=== PATIENT | male | born 1995 | race African-American/Black ===

== ENCOUNTER 2019-05-06 18:42 | Emergency (ER) | payer MEDICAID ==
[2019-05-06 18:51] VITALS: BP 123/67
== END 2019-05-06 21:10 | disposition left against medical advice (07) ==
LOC: ER 18:42
DX: Z53.21 Procedure and treatment not carried out due to patient leaving prior to being seen by health care provider (principal)

== ENCOUNTER 2019-08-28 20:25 | Emergency (ER) | payer SELFPAY ==
--- NOTE | 2019-08-28 20:44 | ER Document Report ---
ED Medical Screen (RME) - General Chief Complaint: Chest Pain Stated Complaint: CHEST PAIN Time Seen by Provider: 08/28/19 20:42 Primary Care Provider: SELVIN HOOKS MD [Primary Care Provider] - Follow up as needed Notes: Patient presents reporting chest discomfort and feeling like his heart is expanding every time that he uses marijuana. Patient states that he has not used any marijuana tonight. Patient is also concerned about possibly using marijuana that has been laced with fentanyl. Patient denies any symptoms at present although would like to follow-up about the symptoms he has been having recently. I have greeted and performed a rapid initial assessment of this patient. A comprehensive ED assessment and evaluation of the patient, analysis of test results and completion of the medical decision making process will be conducted by additional ED providers. TRAVEL OUTSIDE OF THE [place] IN LAST 30 DAYS: No - Related Data Allergies/Adverse Reactions: amoxicillin Allergy (Verified 07/25/16 07:59) lactose Allergy (Verified 07/25/16 07:59) Past Medical History Pulmonary Medical History: Reports: Hx Asthma Physical Exam - Vital signs Vitals: Temp Pulse Resp BP Pulse Ox 98.7 F 89 22 H 137/69 H 98 08/28/19 20:37 08/28/19 20:37 08/28/19 20:37 08/28/19 20:37 08/28/19 20:37 - Cardiovascular Rhythm: Regular Heart sounds: S1 appreciated, S2 appreciated Murmur: No Course - Vital Signs Vital signs: Temp Pulse Resp BP Pulse Ox 98.7 F 89 22 H 137/69 H 98 08/28/19 20:37 08/28/19 20:37 08/28/19 20:37 08/28/19 20:37 08/28/19 20:37 Doctor's Discharge - Discharge Referrals: SELVIN HOOKS MD [Primary Care Provider] - Follow up as needed
--- NOTE | 2019-08-28 21:17 | ER Document Report ---
ED General - General Chief Complaint: Chest Pain Stated Complaint: CHEST PAIN Time Seen by Provider: 08/28/19 20:42 Primary Care Provider: SELVIN HOOKS MD [ACTIVE STAFF] - Follow up as needed TRAVEL OUTSIDE OF THE [place] IN LAST 30 DAYS: No - HPI Notes: 20-year-old male with a history of anxiety presents with chest pain. Patient states he has had intermittent chest pain for the last 3 to 4 days. Seems to surround when he is smoking marijuana. He is also concerned it is laced with fentanyl. Developed sharp mid chest pain, sometimes radiates to his back. Waxes and wanes. No personal or family history of venous thrombi embolism, no prolonged immobility. No fever, chills or sweats. Moderate intensity, nonexertional. Gradual onset. Nonradiating except as described. No other modifying factors, no other associated symptoms, no other provocative or palliative factors. - Related Data Allergies/Adverse Reactions: amoxicillin Allergy (Verified 07/25/16 07:59) lactose Allergy (Verified 07/25/16 07:59) Past Medical History - Social History Smoking Status: Current Every Day Smoker Drug Abuse: Marijuana Family History: Reviewed & Not Pertinent Patient has suicidal ideation: No Patient has homicidal ideation: No - Medical History Medical History: Negative Notes: Includes anxiety Pulmonary Medical History: Reports: Hx Asthma, Hx Bronchitis Review of Systems - Review of Systems Notes: Review of systems as in the history of present illness, otherwise negative x 10 systems. Physical Exam - Vital signs Vitals: Temp Pulse Resp BP Pulse Ox 98.7 F 89 22 H 137/69 H 98 08/28/19 20:37 08/28/19 20:37 08/28/19 20:37 08/28/19 20:37 08/28/19 20:37 - Notes Notes: General: Well developed . HEENT: Normocephalic, atraumatic. Pupils equal round reactive to light. No JVD. Chest: No trauma. Respiratory: Good air exchange, normal excursion. Cardiac: Regular rhythm. No murmurs or gallops. Abdomen: Soft, benign. Nondistended. Nontender. Back: No asymmetry or gross abnormality. Motor: Grossly normal power and tone. Neurologic: Alert, nonfocal. Cranial nerves II-12 are intact. Sensation intact. Vascular: Well perfused. Normal peripheral pulses. Skin: No petechiae or purpura. Course - Re-evaluation Re-evalutation: 08/28/19 21:16 Is a well-appearing 24-year-old male with chest pain, certainly low risk for any intrathoracic emergency. Suspect this is likely related to his anxiety and smoking, costochondritis or pleurisy. He is PERC negative, would not pursue pulmonary embolism work-up. Doubt pneumothorax will check chest x-ray. Otherwise will take NSAIDs, reassured. Have admonished him not to smoke marijuana or use illicit drugs. 08/28/19 21:55 Additional information indicates that the patient has been doing quite a bit of lifting in a new exercise routine. He is discharged home with instructions to take naproxen, outpatient follow-up. Chest x-ray is unremarkable, EKG unremarkable. - Vital Signs Vital signs: Temp Pulse Resp BP Pulse Ox 98.7 F 89 14 109/67 100 08/28/19 20:37 08/28/19 20:37 08/28/19 21:00 08/28/19 21:00 08/28/19 21:00 - EKG Interpretation by In EKG shows normal: Sinus rhythm, [place], Intervals, QRS Complexes, ST-T Waves Discharge - Discharge Clinical Impression: Chest pain Qualifiers: Chest pain type: other chest pain Qualified Code(s): R07.89 - Other chest pain; R07.8 - Other chest pain Condition: Stable Disposition: HOME, SELF-CARE Instructions: Chest Wall Pain ([facility]), Chest Pain of Unclear Cause ([facility]) Referrals: SELVIN HOOKS MD [ACTIVE STAFF] - Follow up as needed
--- NOTE | 2019-08-28 21:42 | RADIOLOGY REPORT (SQ) ---
XR CHEST 2 VIEWS EXAM DATE: 08/28/2019 8:42 PM CDT HISTORY: Chest pain. COMPARISON: 07/25/2016 FINDINGS: The heart size is within normal limits. No consolidation, pleural effusion, or pneumothorax is seen. No acute bony findings. IMPRESSION: No acute cardiopulmonary disease.
[2019-08-28 22:01] VITALS: BP 123/72
--- NOTE | 2019-08-28 22:55 | EKG REPORT ---
SEVERITY:- NORMAL ECG - SINUS RHYTHM : Confirmed by: Lydia Bowling MD 28-Aug-2019 22:53:52
== END 2019-08-28 22:11 | disposition home or self-care (01) ==
LOC: ER 20:25
DX: R07.89 Other chest pain (principal); F41.9 Anxiety disorder, unspecified; F17.200 Nicotine dependence, unspecified, uncomplicated; Z88.0 Allergy status to penicillin
CPT/HCPCS: 71046; 93005; 93010; 99285

== ENCOUNTER 2019-11-06 12:27 | Emergency (ER) | payer SELFPAY ==
[2019-11-06] MEDS ORDERED: IPRATROPIUM/ALBUTEROL 0.5-2.5 MG/3 ML AMPUL NEB ONE (13:15)
[2019-11-06] MEDS ORDERED: PREDNISONE 20 MG TABLET PO ONE (13:15)
--- NOTE | 2019-11-06 13:16 | ER Document Report ---
HPI - HPI Time Seen by Provider: 11/06/19 13:12 Notes: Otherwise healthy 24-year-old male presents emergency department with cough that has been ongoing for 2 weeks. States he had some dizziness last week. Denies any nausea, vomiting, diarrhea. He does report that the cough is productive wi th clear mucus. Denies any fevers. Past Medical History - General Information source: Patient - Social History Smoking Status: Never Smoker Frequency of alcohol use: None Family History: Reviewed & Not Pertinent Pulmonary Medical History: Reports: Hx Asthma, Hx Bronchitis Vertical Provider Document - CONSTITUTIONAL Notes: PHYSICAL EXAMINATION: GENERAL: Well-appearing, well-nourished and in no acute distress. HEAD: Atraumatic, normocephalic. EYES: Pupils equal round extraocular movements intact, conjunctiva are normal. ENT: Nares patent, bilateral TMs unremarkable. Oropharynx unremarkable, no exudates, swelling or erythema. NECK: Normal range of motion LUNGS: No respiratory distress, coarse rhonchi cleared with cough. Very faint expiratory wheezes noted. Musculoskeletal: Normal range of motion NEUROLOGICAL: Normal speech, normal gait. PSYCH: Normal mood, normal affect. SKIN: Warm, Dry, normal turgor, no rashes or lesions noted. - INFECTION CONTROL TRAVEL OUTSIDE OF THE [place] IN LAST 30 DAYS: No Course - Re-evaluation Re-evalutation: Chest X-Ray 11/06/19 13:15 IMPRESSION: NO ACUTE RADIOGRAPHIC FINDING IN THE CHEST. - Vital Signs Vital signs: Temp Pulse Resp BP Pulse Ox 97.9 F 83 16 125/71 99 11/06/19 12:36 11/06/19 12:36 11/06/19 12:36 11/06/19 12:36 11/06/19 12:36 Discharge - Discharge Clinical Impression: Bronchitis Condition: Stable Disposition: HOME, SELF-CARE Additional Instructions: You were seen for symptoms most consistent with bronchitis. This can take up to 12 weeks to fully resolve. Please follow-up with your primary doctor in the next 2-3 days. Return if you develop worsening cough, vomiting, fever >100.4, pass out, begin coughing blood, or have any other symptoms that are concerning to you. Please use the medications prescribed today as directed. Prescriptions: Benzonatate [Tessalon Perles 100 mg Capsule] 1 - 2 tab PO Q8HP PRN #30 capsule PRN Reason: Prednisone [Deltasone 20 mg Tablet] 3 tab PO DAILY 5 Days #15 tablet Azithromycin [Zithromax 250 mg Tablet] 250 mg PO ASDIR PRN #6 tablet PRN Reason: Forms: Return to Work
[2019-11-06] MEDS ORDERED: BENZONATATE 100 MG CAPSULE PO ONE (13:24)
--- NOTE | 2019-11-06 13:44 | RADIOLOGY REPORT (SQ) ---
EXAM DESCRIPTION: CHEST 2 VIEWS COMPLETED DATE/TIME: 11/06/2019 1:34 pm REASON FOR STUDY: cough x2 weeks COMPARISON: Two-view chest 07/25/2016, 08/28/2019 EXAM PARAMETERS: NUMBER OF VIEWS: two views TECHNIQUE: Digital Frontal and Lateral radiographic views of the chest acquired. RADIATION DOSE: NA LIMITATIONS: none FINDINGS: LUNGS AND PLEURA: No opacities, masses or pneumothorax. No pleural effusion. MEDIASTINUM AND HILAR STRUCTURES: No masses or contour abnormalities. HEART AND VASCULAR STRUCTURES: Heart normal size. No evidence for failure. BONES: No acute findings. HARDWARE: None in the chest. OTHER: No other significant finding. IMPRESSION: NO ACUTE RADIOGRAPHIC FINDING IN THE CHEST. TECHNICAL DOCUMENTATION: JOB ID: [id number] [employer]- All Rights Reserved Reading location - IP/workstation name: [email or web address]
[2019-11-06 14:03] VITALS: BP 109/55
== END 2019-11-06 13:57 | disposition home or self-care (01) ==
LOC: ER 12:27
DX: J40 Bronchitis, not specified as acute or chronic (principal); R42 Dizziness and giddiness
CPT/HCPCS: 94640; 99283; 71046; J7512; J7620

== ENCOUNTER 2020-05-17 14:58 | Emergency (ER) | payer SELFPAY ==
[2020-05-17] MEDS ORDERED: LIDOCAINE 5% (700 MG) TRANSDERMAL ADH..PATCH TP ONE (19:56)
[2020-05-17] MEDS ORDERED: IBUPROFEN 800 MG TABLET PO ONE (19:56)
[2020-05-17] MEDS ORDERED: HYDROCODONE/ACETAMINOPHEN 5-325 MG TABLET PO ONE (19:56)
--- NOTE | 2020-05-17 19:59 | ER Document Report ---
HPI - HPI Patient complains to provider of: Back pain Time Seen by Provider: 05/17/20 19:21 Onset: This morning Onset/Duration: Persistent Quality of pain: Achy Pain Level: 4 Context: Patient presents complaining of right upper back pain that started today. Patient states that he sleeps on a couch that is too short. Patient states that whenever he moves his right upper extremity it worsens the pain. Patient denies any cough. Patient denies any fever or trauma. Associated Symptoms: denies: Chest pain, Nonproductive cough, Productive cough, Fever, Headache Exacerbated by: Movement Relieved by: Denies Similar symptoms previously: No Recently seen / treated by doctor: No - ROS ROS below otherwise negative: Yes Systems Reviewed and Negative: Yes All other systems reviewed and negative - CONSTITUTIONAL Constitutional: DENIES: Fever, Chills - NEURO Neurology: DENIES: Headache - CARDIOVASCULAR Cardiovascular: DENIES: Chest pain - RESPIRATORY Respiratory: DENIES: Trouble Breathing, Coughing - GASTROINTESTINAL Gastrointestinal: DENIES: Nausea, Patient vomiting - MUSCULOSKELETAL Musculoskeletal: REPORTS: Back Pain. DENIES: Extremity pain, Neck Pain - DERM Skin Color: Normal Skin Problems: None Past Medical History - General Information source: Patient - Social History Smoking Status: Current Every Day Smoker Frequency of alcohol use: None Drug Abuse: Marijuana Occupation: Online entertainment Lives with: Family Family History: Reviewed & Not Pertinent Patient has homicidal ideation: No Pulmonary Medical History: Reports: Hx Asthma, Hx Bronchitis Past Surgical History: Reports: Hx Oral Surgery Vertical Provider Document - CONSTITUTIONAL Agree With Documented VS: Yes Exam Limitations: No Limitations General Appearance: WD/WN, No Apparent Distress - INFECTION CONTROL TRAVEL OUTSIDE OF THE [place] IN LAST 30 DAYS: No - HEENT HEENT: Atraumatic, Normocephalic - NECK Neck: Normal Inspection, Supple. negative: Lymphadenopathy-Left, Lymphadenopathy-Right - RESPIRATORY Respiratory: Breath Sounds Normal, No Respiratory Distress - CARDIOVASCULAR Cardiovascular: Regular Rate, Regular Rhythm Pulses: Normal: Radial - BACK Back: Abnormal Inspection - Right thoracic back tenderness, right trapezius muscle tenderness - MUSCULOSKELETAL/EXTREMETIES Musculoskeletal/Extremeties: ANAMARIA WAGNER - NEURO Level of Consciousness: Awake, Alert, Appropriate Motor/Sensory: No Motor Deficit - DERM Integumentary: Warm, Dry, No Rash Course - Re-evaluation Re-evalutation: 05/17/20 20:00 The patient presents with back pain without signs of spinal cord compression, cauda equina syndrome, infection, aneurysm, or other serious etiology. The patient is neurologically intact. Given the extremely risk of these diagnoses further testing and evaluation for these possibilities does not appear to be indicated at this time. Patient has been instructed to return if the symptoms worsen or change in any way. - Vital Signs Vital signs: Temp Pulse Resp BP Pulse Ox 98.4 F 78 18 118/68 98 05/17/20 16:25 05/17/20 16:25 05/17/20 16:25 05/17/20 16:25 05/17/20 16:25 Discharge - Discharge Clinical Impression: Muscle strain of right upper back Qualifiers: Encounter type: initial encounter Qualified Code(s): S29.012A - Strain of muscle and tendon of back wall of thorax, initial encounter Condition: Stable Disposition: HOME, SELF-CARE Instructions: Ice Packs ([facility]), Muscle Relaxers ([facility]), Upper Back Strain ([facility]), Warm Packs ([facility]) Additional Instructions: Return immediately for any new or worsening symptoms Followup with your primary care provider, call tomorrow to make a followup appointment Prescriptions: Cyclobenzaprine HCl [Flexeril 10 Mg Tablet] 10 mg PO TID #15 tablet Lidocaine [Lidoderm 5% (700 mg) Transdermal Patch] 1 patch TP DAILY PRN #10 adh..patch PRN Reason: Naproxen [Naprosyn 250 Nmg Tablet] 1 tab PO BID #14 tablet Forms: Return to Work Referrals: [facility] [Provider Group] - Follow up as needed [facility] [Provider Group] - Follow up as needed
[2020-05-17 20:18] VITALS: BP 116/70
== END 2020-05-17 20:18 | disposition home or self-care (01) ==
LOC: ER 14:58
DX: S29.012A Strain of muscle and tendon of back wall of thorax, initial encounter (principal); X58.XXXA Exposure to other specified factors, initial encounter; F17.200 Nicotine dependence, unspecified, uncomplicated; F12.10 Cannabis abuse, uncomplicated; J45.909 Unspecified asthma, uncomplicated
CPT/HCPCS: 99283

== ENCOUNTER 2020-09-11 14:44 | Emergency (ER) | payer SELFPAY ==
[2020-09-11 14:56] VITALS: BP 118/56
[2020-09-11] MEDS ORDERED: ONDANSETRON 4 MG TAB.RAPDIS PO ONE (17:10)
--- NOTE | 2020-09-11 17:12 | ER Document Report ---
ED Medical Screen (RME) - General Chief Complaint: Nausea Stated Complaint: NAUSEA Time Seen by Provider: 09/11/20 17:05 Mode of Arrival: Ambulatory Information source: Patient Notes: HPI; 25-year-old male presents to the emergency room complaining of persistent nausea that started earlier this morning. Denies any vomiting, no abdominal pain, no diarrhea. Patient states "I think it is a hangover". States he tried his usual hangover remedies without relief. He denies any ill contacts. No COVID-19 exposure. Is able to tolerate p.o. but states it causes extreme nausea. PE: Alert and oriented x3. Mild distress noted. Lungs: Clear to auscultation without rales, rhonchi, wheezes. Heart: Regular rate and rhythm without murmurs, rubs, gallops. I have greeted and performed a rapid initial assessment of this patient. A comprehensive ED assessment and evaluation of the patient, analysis of test results and completion of the medical decision making process will be conducted by additional ED providers. I have specifically instructed the patient or family members with the patient to immediately return to any nursing staff should anything change in the patient's condition or with their chief complaint. TRAVEL OUTSIDE OF THE [place] IN LAST 30 DAYS: No - Related Data Allergies/Adverse Reactions: amoxicillin Allergy (Verified 11/06/19 13:12) lactose Allergy (Verified 11/06/19 13:12) Penicillins Allergy (Verified 09/11/20 17:04) Past Medical History - Social History Chew tobacco use (# tins/day): No Drug Abuse: None Pulmonary Medical History: Reports: Hx Asthma, Hx Bronchitis Past Surgical History: Reports: Hx Oral Surgery Physical Exam - Vital signs Vitals: Temp Pulse Resp BP Pulse Ox 98.1 F 89 16 118/56 L 99 09/11/20 14:54 09/11/20 14:54 09/11/20 14:54 09/11/20 14:54 09/11/20 14:54 Course - Vital Signs Vital signs: Temp Pulse Resp BP Pulse Ox 98.1 F 89 16 118/56 L 99 09/11/20 14:54 09/11/20 14:54 09/11/20 14:54 09/11/20 14:54 09/11/20 14:54
[2020-09-11 17:47] LABS: ABSOLUTE EOSINOPHILS # (AUTO) 0.1 10^3/uL (0.0-0.6); ABSOLUTE MONOCYTES (AUTO) 0.4 10^3/uL (0.1-1.4); ABSOLUTE NEUT (AUTO) 1.9 10^3/uL (1.7-8.2); BASOPHILS % (AUTO) 0.7 % (0-2); EOSINOPHILS % (AUTO) 2.1 % (0-6); HEMATOCRIT 44.2 % (37.9-51.0); HEMOGLOBIN 15.3 g/dL (13.5-17.0); LYMPHOCYTES % (AUTO) 28.6 % (13-45); MEAN CORPUSCULAR HEMOGLOBIN 33.5 pg (27.0-33.4); MEAN CORPUSCULAR HGB CONC 34.5 g/dL (32.0-36.0); MEAN CORPUSCULAR VOLUME 97 fl (80-97); MONOCYTES % (AUTO) 11.5 % (3-13); PLATELET COUNT 228 10^3/uL (150-450); RED BLOOD COUNT 4.55 10^6/uL (4.35-5.55); RED CELL DISTRIBUTION WIDTH 13.1 % (11.5-14.0); SEGMENTED NEUTROPHILS % (AUTO) 57.1 % (42-78); TOTAL CELLS COUNTED % (AUTO) 100 %; WHITE BLOOD COUNT 3.4 10^3/uL (4.0-10.5)
[2020-09-11 17:59] LABS: APPEARANCE,URINE CLEAR; BILIRUBIN,URINE NEGATIVE (NEGATIVE); COLOR,URINE YELLOW; GLUCOSE, URINE NEGATIVE (NEGATIVE); KETONES,URINE NEGATIVE (NEGATIVE); LEUKOCYTE ESTERASE,URINE NEGATIVE (NEGATIVE); NITRITE,URINE NEGATIVE (NEGATIVE); PROTEIN,URINE NEGATIVE (NEGATIVE); URINE SPECIFIC GRAVITY 1.024
[2020-09-11 18:04] LABS: ALBUMIN 4.7 g/dL (3.5-5.0); ALKALINE PHOSPHATASE 49 U/L (38-126); ANION GAP 10 (5-19); ASPARTATE AMINO TRANSFERASE 25 U/L (17-59); BILIRUBIN,TOTAL 0.8 mg/dL (0.2-1.3); BLOOD UREA NITROGEN 14 mg/dL (7-20); CALCIUM 9.7 mg/dL (8.4-10.2); CARBON DIOXIDE 28 mmol/L (22-30); CHLORIDE 102 mmol/L (98-107); GLUCOSE 95 mg/dL (75-110); TOTAL PROTEIN 7.4 g/dL (6.3-8.2)
--- OUTSIDE RECORDS SUMMARY | 2020-09-13 17:42 | XMS REPORT ---
:1995 [facility] Address [address] [address] Care Team Providers Name Role Phone Unavailable Unavailable Unavailable Allergies, Adverse Reactions, Alerts Allergy Name Allergy Status Severity Reaction(s) Onset Inactive Treat ing Comments Type Date Date Clinician AMOXICILLIN Drug Active Unknown 2020-01 TRIHYDRATE allergy - 00:00:0 0 POTASSIUM Drug Active Unknown 2020-01 CLAVULANATE allergy - 00:00:0 0 Medications This patient has no known medications. Problems This patient has no known problems. Procedures This patient has no known procedures. Results This patient has no known results. Social History This patient has no known social history. Vital Signs This patient has no known vital signs.
== END 2020-09-11 19:33 | disposition left against medical advice (07) ==
LOC: ER 14:44
DX: R11.0 Nausea (principal); J45.909 Unspecified asthma, uncomplicated; Z88.0 Allergy status to penicillin; Z91.018 Allergy to other foods; Z53.20 Procedure and treatment not carried out because of patient's decision for unspecified reasons
CPT/HCPCS: 36415; 80053; 81001; 85025; 99281